=== PATIENT | female | born 1940 | race Two or more races ===

== ENCOUNTER 2017-11-21 14:57 | Emergency (ER) | payer MEDICARE ==
[~2017-11-21] VITALS: Ht 144.8 cm; Wt 54.0 kg
[2017-11-21 15:07] VITALS: BP 134/74
== END 2017-11-21 18:10 | disposition home or self-care (01) ==
LOC: ED 16:39
DX: S42.022A Displaced fracture of shaft of left clavicle, initial encounter for closed fracture (principal); I10 Essential (primary) hypertension; E78.00 Pure hypercholesterolemia, unspecified; W06.XXXA Fall from bed, initial encounter; Y93.01 Activity, walking, marching and hiking; Y92.003 Bedroom of unspecified non-institutional (private) residence as the place of occurrence of the external cause; Y99.8 Other external cause status
CPT/HCPCS: 99284

== ENCOUNTER 2019-03-05 11:03 | Emergency (ER) | payer MEDICARE ==
[~2019-03-05] VITALS: Ht 144.8 cm; Wt 51.0 kg
[2019-03-05] MEDS ORDERED: ONDANSETRON ODT 4 MG PO ONE (12:00)
[2019-03-05] MEDS ORDERED: ONDANSETRON ODT 4 MG ONE (12:01)
--- NOTE | 2019-03-05 12:16 | NUR ---
PT REFUSING C-COLLAR
--- NOTE | 2019-03-05 12:20 | NUR ---
AFTER MEDICATED PT TO RADIOLOGY
--- NOTE | 2019-03-05 13:53 | NUR ---
PT STATES PAIN IMPROVED SINCE MEDICATED AND NO LONGER HEAVING. AWAITING RE-EVAL
[2019-03-05 14:25] VITALS: BP 126/50
--- NOTE | 2019-03-05 14:25 | NUR ---
MD REMOVAL OF COLLAR. PT GETTING DRESSED AND DISCHARGE INSTRUCTIONS GIVEN. TO DISCHARGE WINDOW VIA WHEELCHAIR
== END 2019-03-05 14:28 | disposition home or self-care (01) ==
LOC: ED 14:20
DX: S16.1XXA Strain of muscle, fascia and tendon at neck level, initial encounter (principal); S09.90XA Unspecified injury of head, initial encounter; M25.511 Pain in right shoulder; M25.521 Pain in right elbow; R51 Headache; I10 Essential (primary) hypertension; E78.00 Pure hypercholesterolemia, unspecified; M19.90 Unspecified osteoarthritis, unspecified site; W01.198A Fall on same level from slipping, tripping and stumbling with subsequent striking against other object, initial encounter; Y93.89 Activity, other specified; Y92.410 Unspecified street and highway as the place of occurrence of the external cause; Y99.8 Other external cause status
CPT/HCPCS: 70450; 72125; 73060; 73090; 93005; 99284; Q0162